=== PATIENT | male | born 2000 | race Two or more races ===

== ENCOUNTER 2018-07-06 07:48 | Outpatient (CLI) | payer OTHER | END 2018-07-06 07:50 | disposition home or self-care (01) | LOC: SONOGRAMA 07:48 | DX: R10.9 Unspecified abdominal pain (principal) ==

== ENCOUNTER 2019-02-27 07:37 | Outpatient (CLI) | payer OTHER | END 2019-02-27 07:49 | disposition home or self-care (01) | LOC: TOM 07:37 | DX: R10.84 Generalized abdominal pain (principal); R63.4 Abnormal weight loss ==

== ENCOUNTER 2021-07-08 08:00 | Outpatient (CLI) | payer OTHER | END 2021-07-08 08:30 | disposition home or self-care (01) | LOC: PPH VACUNA 08:00 | PROVIDERS: ATTEND Emergency Medicine Pediatric Emergency Medicine | DX: Z23 Encounter for immunization (principal) ==